=== PATIENT | female | born 1955 | race Hispanic/Latino ===

== ENCOUNTER 2017-09-04 14:40 | Observation (INO) | payer MEDICARE, MEDICAID ==
[2017-09-04] MEDS ORDERED: DiphenhydrAMINE 50 mg/ml Inj IVP STA ×3 (16:25→21:05)
[2017-09-04] MEDS ORDERED: Sodium Chloride 0.9% 1,000 ML IV STA (16:26)
--- NOTE | 2017-09-04 16:50 | ED PDOC ---
HPI: Abdomen Time Seen by Provider: 09/04/17 16:08 Chief Complaint (Nursing): Abdominal Pain Chief Complaint (Provider): Abdominal Pain History Per: Patient History/Exam Limitations: no limitations Onset/Duration Of Symptoms: Days (x10) Outside of [place] travel?: No Current Symptoms Are (Timing): Still Present Location Of Pain/Discomfort: LLQ Quality Of Discomfort: "Pain" Associated Symptoms: Chills, Nausea, Diarrhea. denies: Vomiting Additional Complaint(s): 61 y/o female with a history of diverticulitis and chronic abdominal pain presents to the ED for abdominal pain. Patient states the pain is prominent in the LLQ and has been getting progressively worse over the past 10 days. She went to the [facility] where she had lab work, urine tests, and a CT completed. The diagnosis was diverticulitis and she began on medication which she says gave her no relief. She saw her PMD today who referred her to the ED for evaluation. Patient is complaining of chills, weakness, and body aches. She denies any vomiting, black or bloody stools. PMD: Dr. Bebeto Muhammad Past Medical History Reviewed: Historical Data, Nursing Documentation, Vital Signs Vital Signs: Last Vital Signs Temp 97.6 F 09/04/17 15:13 Pulse 88 09/04/17 15:13 Resp 16 09/04/17 15:13 BP 145/76 09/04/17 15:13 Pulse Ox 98 09/04/17 20:58 - Medical History PMH: Arthritis, Asthma, Back Problems, COPD, Depression, Diverticulitis, Emphysema, HTN, Hypercholesterolemia Denies: HIV, Chronic Kidney Disease - Surgical History Surgical History: Appendectomy, Cholecystectomy - Family History Family History: States: Unknown Family Hx - Social History Current smoker - smoking cessation education provided: No Ex-Smoker (has not smoked in the last 12 months): No Alcohol: None Drugs: Denies - Home Medications Home Medications: Ambulatory Orders Medication Instructions Recorded Albuterol Sulfate [Proair Hfa] 2 puff IH Q4H PRN 04/12/15 Dicyclomine [Bentyl] 20 mg PO TID PRN 04/12/15 Esomeprazole Magnesium [Nexium] 40 mg PO DAILY 04/12/15 Valsartan [Diovan] 40 mg PO DAILY 09/04/17 - Allergies Allergies/Adverse Reactions: Allergies Allergy/AdvReac Type Severity Reaction Status Date / Time ceftriaxone sodium Allergy RASH Verified 09/04/17 15:13 [From Rocephin] iodine Allergy RASH Verified 09/04/17 15:13 ketorolac tromethamine Allergy RASH Verified 09/04/17 15:13 [From Toradol] morphine Allergy RASH Verified 09/04/17 15:13 succinylcholine Allergy ANAPHYLAXIS Verified 09/04/17 15:13 Sulfa (Sulfonamide Allergy RASH Verified 09/04/17 15:13 Antibiotics) Review of Systems ROS Statement: Except As Marked, All Systems Reviewed And Found Negative Constitutional: Positive for: Chills, Weakness, Other (body aches) Gastrointestinal: Positive for: Nausea, Abdominal Pain (LLQ), Diarrhea. Negative for: Vomiting, Hematochezia Physical Exam - Physical Exam Appears: Positive for: Non-toxic, In Acute Distress. Negative for: Well ( painful distress) Head Exam: Positive for: ATRAUMATIC, NORMOCEPHALIC Skin: Positive for: Warm, Dry Eye Exam: Positive for: EOMI, PERRL ENT: Positive for: Pharynx Is (clear), Other (tacky mucous membranes) Neck: Positive for: Painless ROM, Supple Cardiovascular/Chest: Positive for: Regular Rate, Rhythm. Negative for: Murmur Respiratory: Positive for: Normal Breath Sounds. Negative for: Wheezing Gastrointestinal/Abdominal: Positive for: Soft, Tenderness (LLQ). Negative for : Mass, Distended, Guarding, Rebound Back: Positive for: Normal Inspection. Negative for: Decreased ROM Extremity: Positive for: Normal ROM. Negative for: Deformity Lymphatic: Negative for: Adenopathy Neurologic/Psych: Positive for: Alert. Negative for: Motor/Sensory Deficits - Laboratory Results Result Diagrams: 09/04/17 17:38 09/04/17 17:38 - ECG O2 Sat by Pulse Oximetry: 98 (RA) Pulse Ox Interpretation: Normal Medical Decision Making Medical Decision Making: Time: 15:13 Initial Impression: LLQ Pain Differential Diagnosis: Colitis, diverticulitis, ovarian cyst, enteritis, or dehydration Initial Plan: * Abdomen & Pelvis CT * EKG * CMP * Blood Work * UDip * CBC * Chest X-Ray * Tylenol 975 mg PO * Barium Sulfate * Bentyl 20 mg PO * IV Fluids * Zofran 8 mg IV * Blood Culture * Urine Culture * Uranalysis Reviewed workup from [facility] (provided by patient). Ct demonstrated diverticulosis with no diverticulitis. DW Dr Muhammad on arrival who agrees with repeat labs and CT with barium, IV meds for pain and diverticulitis, hospitalize for intractable abdominal pain pending ER workup. Pt initially reported morphine allergy. However, she reports that it just makes her shaky. No rash or sob. Will treat with benadryl and zofran, and follow with morphine. 630p No emergently significant lab abnormalities EXAM: CT Abdomen and Pelvis With Intravenous Contrast EXAM DATE/TIME: 09/04/2017 4:22 PM CLINICAL HISTORY: 61 years old, female; Pain; Abdominal pain; Other: Rlq pain; Prior surgery; Surgery date: 6+ months; Surgery type: Appendectomy, cholecystectomy; Patient HX: HX of diverticulitis; Additional info: Llq R/O divertculitis TECHNIQUE: Axial computed tomography images of the abdomen and pelvis with intravenous contrast. All CT scans at this facility use one or more dose reduction techniques, viz.: automated exposure control; ma/kV adjustment per patient size (including targeted exams where dose is matched to indication; i.e. head); or iterative reconstruction technique. CONTRAST: 450 mL of barium sulfate administered intravenously. COMPARISON: CT - ABD PELVIS W/O PO OR IV CONT 2015-08-26 20:52 FINDINGS: Lung bases: Linear atelectasis in the right lung base. Subtle infiltrate is difficult to exclude. ABDOMEN: Liver: Unremarkable. No mass. Gallbladder and bile ducts: Cholecystectomy. No ductal dilation. Pancreas: Unremarkable. No mass. No ductal dilation. Spleen: Unremarkable. No splenomegaly. Adrenals: Unremarkable. No mass. Kidneys and ureters: Unremarkable. No solid mass. No hydronephrosis. Stomach and bowel: Diverticulosis is most pronounced in the sigmoid colon. No obstruction. No mucosal thickening. Appendix: The appendix is normal. PELVIS: Bladder: Unremarkable. No mass. Reproductive: Unremarkable as visualized. ABDOMEN and PELVIS: Intraperitoneal space: Unremarkable. No free air. No significant fluid collection. Bones/joints: No acute fracture. No dislocation. Soft tissues: Unremarkable. Vasculature: Unremarkable. No abdominal aortic aneurysm. Lymph nodes: Unremarkable. No enlarged lymph nodes. IMPRESSION: 1. No acute obstructive or inflammatory process in the abdomen or pelvis. 2. Linear atelectasis in the right lung base. Subtle infiltrate is difficult to exclude. Thank you for allowing us to participate in the care of your patient. Dictated and Authenticated by: Alek Lyons MD 09/04/2017 8:53 PM Eastern Time ([place] & [place]) Scribe Attestation: Documented by John Hernandes acting as a scribe for Vincent Hemphill MD. Scribe Attestation: All medical record entries made by the Scribe were at my direction and personally dictated by me. I have reviewed the chart and agree that the record accurately reflects my personal performance of the history, physical exam, medical decision making, and the department course for this patient. I have also personally directed, reviewed, and agree with the discharge instructions and disposition. Disposition - Clinical Impression Clinical Impression: Intractable abdominal pain, Diverticulosis Counseled Patient/Family Regarding: Studies Performed, Diagnosis, Need For Followup - Disposition Disposition Time: 17:00 Condition: FAIR - Pt Status Changed To: Hospital Disposition Of: Observation - POA Present On Arrival: None
[2017-09-04] MEDS ORDERED: Barium Sulfate Susp 2.1% w/v, 2.0% w/w 450 mL Bottle PO ONE ×3 (17:00→18:00)
[2017-09-04] MEDS ORDERED: DiphenhydrAMINE 50 mg/ml Inj ONE ×2 (17:32→21:22)
[2017-09-04 17:48] LABS: BASO # 0.1 K/uL (0.0-0.2); BASO % 0.9 % (0.0-2.0); EOS # 0.2 K/uL (0.0-0.7); EOS % 1.4 % (0.0-4.0); HEMOGLOBIN 13.2 g/dL (12.0-16.0); LYMPH # 3.1 K/uL (1.0-4.3); LYMPH % 27.8 % (20.0-40.0); MEAN CORPUSCULAR HEMOGLOBIN 29.9 pg (27.0-31.0); MEAN CORPUSCULAR HGB CONC 33.6 g/dL (33.0-37.0); MEAN PLATELET VOLUME 8.9 fl (7.2-11.7); MONO # 0.5 K/uL (0.0-0.8); MONO % 4.6 % (0.0-10.0); NEUT # 7.4 K/uL (1.8-7.0); NEUT % 65.3 % (50.0-75.0); RBC 4.41 Mil/uL (3.80-5.20); RED CELL DISTRIBUTION WIDTH 15.4 % (11.5-14.5); WHITE BLOOD COUNT 11.3 K/uL (4.8-10.8)
--- NOTE | 2017-09-04 17:55 | RAD ---
HISTORY: Abdominal pain diverticulitis admission COMPARISON: 04/12/2015. FINDINGS: LUNGS: The lungs are well inflated and clear. PLEURA: No significant pleural effusion identified, no pneumothorax apparent. CARDIOVASCULAR: Normal. OSSEOUS STRUCTURES: No significant abnormalities. VISUALIZED UPPER ABDOMEN: Normal. OTHER FINDINGS: None. IMPRESSION: No active pulmonary disease.
[2017-09-04 18:04] LABS: SQUAMOUS EPITHIAL 3 /hpf (0-5); URINE BILIRUBIN NEGATIVE (NEGATIVE); URINE BLOOD NEGATIVE (NEGATIVE); URINE CALCIUM OXALATE CRYSTALS MANY /hpf (<OCC); URINE CLARITY CLOUDY (Clear); URINE COLOR AMBER (YELLOW); URINE GLUCOSE (UA) NEG (Normal); URINE HYALINE CAST 0-2 /hpf (0-2); URINE LEUKOCYTE ESTERASE TRACE Leu/uL (Negative); URINE PROTEIN 30 mg/dL (NEGATIVE); URINE UROBILINOGEN 0.2-1.0 mg/dL (0.2-1.0)
[2017-09-04 18:07] LABS: ALB/GLOB RATIO 1.3 (1.0-2.1); ALBUMIN 4.1 g/dL (3.5-5.0); ALT/SGPT 35 U/L (9-52); AST/SGOT 37 U/L (14-36); BLOOD UREA NITROGEN 11 mg/dl (7-17); CALCIUM 9.5 mg/dL (8.4-10.2); GFR AFRICAN-AMERICAN > 60; GFR NON-AFRICAN AMERICAN > 60; LIPASE 266 U/L (23-300)
[2017-09-04] MEDS ORDERED: Ciprofloxacin 400mg/200ml D5W 400 MG/200 ML BAG IV STA (21:03)
[2017-09-04] MEDS ORDERED: metroNIDAZOLE 500mg/100ml NS 100 ML IV STA (21:03)
[2017-09-04] MEDS ORDERED: metroNIDAZOLE 500mg/100ml NS 100 ML IVPB ONE (21:23)
[2017-09-04] MEDS ORDERED: Ciprofloxacin 400mg/200ml D5W 400 MG/200 ML BAG IVPB ONE (22:52)
[2017-09-05] MEDS: Dextrose 5%/0.45% NS 1,000 ML IV SCH ×2 (00:59→22:00)
[2017-09-05] MEDS: DiphenhydrAMINE 50 mg/ml Inj IVP PRN ×4 (02:39→23:59)
[2017-09-05] MEDS ORDERED: metroNIDAZOLE 500mg/100ml NS IVPB SCH (06:00)
[2017-09-05] MEDS: metroNIDAZOLE 500mg/100ml NS 100 ML IVPB SCH ×3 (06:09→22:35)
[2017-09-05 06:47] LABS: HEMOGLOBIN 13.1 g/dL (12.0-16.0); MEAN CELL VOLUME 90.4 fl (81.0-99.0); MEAN CORPUSCULAR HEMOGLOBIN 29.4 pg (27.0-31.0); MEAN CORPUSCULAR HGB CONC 32.5 g/dL (33.0-37.0); RBC 4.46 Mil/uL (3.80-5.20); RED CELL DISTRIBUTION WIDTH 15.5 % (11.5-14.5); WHITE BLOOD COUNT 11.5 K/uL (4.8-10.8)
[2017-09-05 07:06] LABS: ALB/GLOB RATIO 1.2 (1.0-2.1); ALBUMIN 3.9 g/dL (3.5-5.0); ALT/SGPT 39 U/L (9-52); AMYLASE 89 U/L (30-110); AST/SGOT 33 U/L (14-36); BLOOD UREA NITROGEN 8 mg/dl (7-17); CALCIUM 8.9 mg/dL (8.4-10.2); GFR AFRICAN-AMERICAN > 60; GFR NON-AFRICAN AMERICAN > 60; HDL CHOLESTEROL 29 MG/DL (30-70); LIPASE 225 U/L (23-300)
[2017-09-05 07:18] LABS: T4 8.44 ug/dl (5.5-11.0)
[2017-09-05 07:26] LABS: LDL CHOLESTEROL 153 mg/dL (0-129)
[2017-09-05] MEDS: Ciprofloxacin 400mg/200ml D5W 400 MG/200 ML BAG IVPB SCH ×2 (08:04→21:35)
[2017-09-05] MEDS: Albuterol-Ipratrop 3 mg / 0.5 (3 ml) UD INH SCH ×3 (08:43→19:04)
--- NOTE | 2017-09-05 10:40 | CARD ---
APPROVED REPORT EKG Measurement Heart [id number] CT 120P52 [id number] <Conclusion> Normal sinus rhythm Possible Left atrial enlargement Borderline ECG
--- NOTE | 2017-09-05 11:03 | CT ---
PROCEDURE: CT Abdomen and Pelvis without intravenous contrast HISTORY: LLQ r/o divertculitis COMPARISON: None. TECHNIQUE: Without contrast.. Contrast Dose: 0 Radiation dose: Total exam DLP = Total exam DLP = 457.94 mGy-cm. This CT exam was performed using one or more of the following dose reduction techniques: Automated exposure control, adjustment of the mA and/or kV according to patient size, and/or use of iterative reconstruction technique. FINDINGS: LOWER THORAX: Unremarkable. LIVER: Unremarkable. No gross lesion or ductal dilatation. GALLBLADDER AND BILE DUCTS: Unremarkable. PANCREAS: Unremarkable. No gross lesion or ductal dilatation. SPLEEN: Unremarkable. ADRENALS: Unremarkable. No mass. KIDNEYS AND URETERS: Unremarkable. No hydronephrosis. No solid mass. VASCULATURE: Unremarkable. No aortic aneurysm. BOWEL: Mural thickening of the gastric fundus and cardia common nonspecific. This may be due to lack of adequate distention although there is adequate contrast material in the antrum and body. Possible nonspecific gastritis. No abnormal bowel loops aside from sigmoid diverticulosis. No evidence of diverticulitis. No bowel obstruction. No evidence of constipation. APPENDIX: Unremarkable. Normal appendix. PERITONEUM: Unremarkable. No free fluid. No free air. LYMPH NODES: Unremarkable. No enlarged lymph nodes. BLADDER: Unremarkable. REPRODUCTIVE: Status post hysterectomy BONES: No acute fracture. OTHER FINDINGS: None. IMPRESSION: No evidence of diverticulitis. Sigmoid diverticulosis is noted. Mural thickening of the gastric fundus and cardia common nonspecific. The remainder of the examination is unremarkable.
--- NOTE | 2017-09-05 14:52 | CP.PCM.HP ---
History of Present Illness - History of Present Illness History of Present Illness: CC: Abdominal pain. 61 y/o F, came by me to ER [facility], [place] to be evaluated for abdominal pain for about 10 days, gradually increased on DOA with no relief. Pt was c/o of abdominal pain more intensive to the LLQ, pain was sharp, constant , severe intensity 8-10:10, with no relief. As per Pt, she was discharged from [facility] on 09/01/17, Dx with Diverticulitis, was given Rx for Cipro and Flagyl but Pt only took for one day, claimed she is enable to tolerate the medication. She underwent EGD/Colonoscopy in , was + for gastritis, neg and for HP and negative for polyps. Worsening symptoms: Chills, no fever, nausea, diarrhea, non bloody, body ache. Aggravated factor: Food, bowel movements. Pt denied: Fever, vomiting, urinary symptoms, SOB, cough, CP, palpitations, syncope, dizziness, sick contact, recent travel out of [facility]. Abd/Pelv CT shows: No evidence of Diverticulitis. No bowel obstruction. Sigmoid Diverticulosis noted. CXR: No active disease. EKG: Normal sinus rhythm. Present on Admission - Present on Admission Any Indicators Present on Admission: No Review of Systems - Constitutional Constitutional: Chills - EENT Eyes: Other (negative) Ears: Other (negative) Nose/Mouth/Throat: Other (negative) - Cardiovascular Cardiovascular: Other (negative) - Respiratory Respiratory: Other (negative) - Gastrointestinal Gastrointestinal: Abdominal Pain, Diarrhea, Nausea - Genitourinary Genitourinary: Other (negative) - Musculoskeletal Musculoskeletal: Arthralgias, Back Pain, Muscle Weakness - Integumentary Integumentary: Other (negative) - Neurological Neurological: Other (negative) - Psychiatric Psychiatric: Other (negative) - Endocrine Endocrine: Other (negative) - Hematologic/Lymphatic Hematologic: Other (negative) Past Patient History - Past Medical History & Family History Past Medical History?: Yes Pertinent Family History: Unknown - Past Social History Smoking Status: Never Smoked Alcohol: None Drugs: Denies Home Situation {Lives}: With Family - CARDIAC Hx Cardiac Disorders: Yes (HTN) - PULMONARY Hx Respiratory Disorders: Yes Hx Asthma: Yes Hx Chronic Obstructive Pulmonary Disease (COPD): Yes Hx Emphysema: Yes - NEUROLOGICAL Hx Neurological Disorder: No - HEENT Hx HEENT Problems: No - RENAL Hx Chronic Kidney Disease: No Hx Dialysis: No - ENDOCRINE/METABOLIC Hx Endocrine Disorders: No - HEMATOLOGICAL/ONCOLOGICAL Hx Blood Disorders: No Hx AIDS: No Hx Human Immunodeficiency Virus (HIV): No - INTEGUMENTARY Hx Dermatological Problems: No - MUSCULOSKELETAL/RHEUMATOLOGICAL Hx Musculoskeletal Disorders: Yes Hx Arthritis: Yes Hx Falls: No - GASTROINTESTINAL Hx Gastrointestinal Disorders: Yes Hx Diverticulitis: Yes - GENITOURINARY/GYNECOLOGICAL Hx Genitourinary Disorders: No - PSYCHIATRIC Hx Psychophysiologic Disorder: Yes Hx Depression: Yes Hx Substance Use: No - SURGICAL HISTORY Hx Surgeries: Yes Hx Appendectomy: Yes Hx Cholecystectomy: Yes - ANESTHESIA Hx Anesthesia: Yes Hx Anesthesia Reactions: No Hx Malignant Hyperthermia: No Meds Allergies/Adverse Reactions: Allergies Allergy/AdvReac Type Severity Reaction Status Date / Time ceftriaxone sodium Allergy ITCHING Verified 09/05/17 00:07 [From Rocephin] iodine Allergy RASH Verified 09/04/17 15:13 ketorolac tromethamine Allergy RASH Verified 09/04/17 15:13 [From Toradol] succinylcholine Allergy ANAPHYLAXIS Verified 09/04/17 15:13 Sulfa (Sulfonamide Allergy RASH Verified 09/04/17 15:13 Antibiotics) Physical Exam - Constitutional Appears: No Acute Distress - Head Exam Head Exam: NORMAL INSPECTION - Eye Exam Eye Exam: PERRL - ENT Exam ENT Exam: Normal Exam - Neck Exam Neck exam: Positive for: Normal Inspection - Respiratory Exam Respiratory Exam: Decreased Breath Sounds (b/l) - Cardiovascular Exam Cardiovascular Exam: REGULAR RHYTHM - GI/Abdominal Exam GI & Abdominal Exam: Normal Bowel Sounds, Soft, Tenderness (mild LLQ) - Extremities Exam Extremities exam: Positive for: normal inspection - Back Exam Back exam: NORMAL INSPECTION - Neurological Exam Neurological exam: Alert, Oriented x3 Additional comments: No motor/sensory deficit. - Psychiatric Exam Psychiatric exam: Normal Mood - Skin Skin Exam: Normal Color, Warm Results - Vital Signs Recent Vital Signs: Last Vital Signs Temp 97.9 F 09/05/17 08:14 Pulse 80 09/05/17 08:43 Resp 20 09/05/17 08:14 BP 137/87 09/05/17 08:14 Pulse Ox 97 09/05/17 08:14 reviewed August - Labs Result Diagrams: 09/05/17 05:40 09/05/17 05:40 Labs: Laboratory Results - last 24 hr 09/04/17 09/04/17 09/04/17 17:38 17:38 17:38 WBC 11.3 H RBC 4.41 Hgb 13.2 Hct 39.3 MCV 89.0 MCH 29.9 MCHC 33.6 RDW 15.4 H Plt Count 454 H MPV 8.9 Neut % (Auto) 65.3 Lymph % (Auto) 27.8 [place] % (Auto) 4.6 Eos % (Auto) 1.4 Baso % (Auto) 0.9 Neut # (Auto) 7.4 H Lymph # (Auto) 3.1 [place] # (Auto) 0.5 Eos # (Auto) 0.2 Baso # (Auto) 0.1 Sodium 144 Potassium 3.6 Chloride 103 Carbon Dioxide 26 Anion Gap 19 BUN 11 Creatinine 0.7 Est GFR ( Amer) > 60 Est GFR (Non-Af Amer) > 60 Random Glucose 142 H Calcium 9.5 Phosphorus 3.0 Magnesium 2.0 Total Bilirubin 0.6 AST 37 H ALT 35 Alkaline Phosphatase 57 Total Protein 7.3 Albumin 4.1 Globulin 3.2 Albumin/Globulin Ratio 1.3 Triglycerides Cholesterol LDL Cholesterol Direct HDL Cholesterol Amylase Lipase 266 Thyroxine (T4) TSH 3rd Generation Urine Color Day Urine Clarity Cloudy Urine pH 6.0 Ur Specific [place] 1.021 Urine Protein 30 Urine Glucose (UA) Neg Urine Ketones Trace Urine Blood Negative Urine Nitrate Negative Urine Bilirubin Negative Urine Urobilinogen 0.2-1.0 Ur Leukocyte Esterase Trace Urine RBC (Auto) 2 Urine Microscopic WBC 4 Ur Squamous Epith Cells 3 Calcium Oxalate Crystal Many H Hyaline Casts 0-2 09/05/17 09/05/17 05:40 05:40 WBC 11.5 H RBC 4.46 Hgb 13.1 Hct 40.3 MCV 90.4 MCH 29.4 MCHC 32.5 L RDW 15.5 H Plt Count 475 H MPV Neut % (Auto) Lymph % (Auto) [place] % (Auto) Eos % (Auto) Baso % (Auto) Neut # (Auto) Lymph # (Auto) [place] # (Auto) Eos # (Auto) Baso # (Auto) Sodium 143 Potassium 3.4 L Chloride 103 Carbon Dioxide 25 Anion Gap 18 BUN 8 Creatinine 0.9 Est GFR ( Amer) > 60 Est GFR (Non-Af Amer) > 60 Random Glucose 106 H Calcium 8.9 Phosphorus Magnesium Total Bilirubin 0.6 AST 33 ALT 39 Alkaline Phosphatase 67 Total Protein 7.1 Albumin 3.9 Globulin 3.2 Albumin/Globulin Ratio 1.2 Triglycerides 248 H D Cholesterol 246 H LDL Cholesterol Direct 153 H HDL Cholesterol 29 L Amylase 89 Lipase 225 Thyroxine (T4) 8.44 TSH 3rd Generation 1.99 Urine Color Urine Clarity Urine pH Ur Specific [place] Urine Protein Urine Glucose (UA) Urine Ketones Urine Blood Urine Nitrate Urine Bilirubin Urine Urobilinogen Ur Leukocyte Esterase Urine RBC (Auto) Urine Microscopic WBC Ur Squamous Epith Cells Calcium Oxalate Crystal Hyaline Casts reviewed j.P. - EKG Data EKG comments: reviewed J.P. - Imaging and Cardiology CT scan - abdomen Status: Report reviewed by me (August) CT scan - pelvis Status: Report reviewed by me (August) Chest x-ray Status: Report reviewed by me (August) Assessment & Plan (1) Intractable abdominal pain Status: Acute Priority: High (2) Diarrhea Status: Acute Priority: High (3) HTN (hypertension) Status: Chronic Priority: Medium (4) COPD (chronic obstructive pulmonary disease) Status: Chronic Priority: Medium - Assessment and Plan (Free Text) Plan: F/U Ova/Parasite, Blood C-S, U C-S, Stool C-S, continue Cipro IV, Flagyl IV, Benadryl, Duoneb Tx, Morphine IV, liquid diet and rest of Tx. GI consult. - Date & Time Date: 09/05/17 Time: 09:45
--- NOTE | 2017-09-05 16:44 | CP.PCM.CON ---
<Mana Serrano - Last Filed: 09/05/17 20:24> History of Present Illness - History of Present Illness History of Present Illness: GI Fellow PGY 4 Consult Note This is a 61y female with a history Arthritis, Asthma, Back Problems, COPD, Depression, Diverticulitis, Emphysema, HTN, Hypercholesterolemi presents to the ED for abdominal pain. Patient states the pain is prominent in the LLQ and diarrhea has been getting progressively worse over the past 10 days. She went to the [facility] where she had lab work, urine tests, and a CT completed. CT from the other hospital showed diverticulosis but no infection, colitis or diverticulitis. She was discharged on cipro/flagyl but only took it for one day. She reports that she has been having severe diarrhea after eating anything for the week and been feeling weak. She saw her PMD today who referred her to the ED for evaluation. Patient is complaining of chills, weakness, and body aches. She denies diarrhea, fevers, rectal bleeding. Pt had a EGD/ Colonoscopy 05/2016 with gastritis, neg for HP, colonoscopy was neg for polyps. ROS: A 12pt ROS was negative except as above PmHx: As stated in HPI PsHx: Appendectomy, Cholecystectomy SHx: neg for etoh, tobacco, drugs FHx: no hx of colon cancer Past Patient History - Past Medical History & Family History Past Medical History?: Yes - Past Social History Smoking Status: Never Smoked - CARDIAC Hx Cardiac Disorders: Yes (HTN) - PULMONARY Hx Respiratory Disorders: Yes Hx Asthma: Yes Hx Chronic Obstructive Pulmonary Disease (COPD): Yes Hx Emphysema: Yes - NEUROLOGICAL Hx Neurological Disorder: No - HEENT Hx HEENT Problems: No - RENAL Hx Chronic Kidney Disease: No Hx Dialysis: No - ENDOCRINE/METABOLIC Hx Endocrine Disorders: No - HEMATOLOGICAL/ONCOLOGICAL Hx Blood Disorders: No Hx AIDS: No Hx Human Immunodeficiency Virus (HIV): No - INTEGUMENTARY Hx Dermatological Problems: No - MUSCULOSKELETAL/RHEUMATOLOGICAL Hx Musculoskeletal Disorders: Yes Hx Arthritis: Yes Hx Falls: No - GASTROINTESTINAL Hx Gastrointestinal Disorders: Yes Hx Diverticulitis: Yes - GENITOURINARY/GYNECOLOGICAL Hx Genitourinary Disorders: No - PSYCHIATRIC Hx Psychophysiologic Disorder: Yes Hx Depression: Yes Hx Substance Use: No - SURGICAL HISTORY Hx Surgeries: Yes Hx Appendectomy: Yes Hx Cholecystectomy: Yes - ANESTHESIA Hx Anesthesia: Yes Hx Anesthesia Reactions: No Hx Malignant Hyperthermia: No Meds Allergies/Adverse Reactions: Allergies Allergy/AdvReac Type Severity Reaction Status Date / Time ceftriaxone sodium Allergy ITCHING Verified 09/05/17 00:07 [From Rocephin] iodine Allergy RASH Verified 09/04/17 15:13 ketorolac tromethamine Allergy RASH Verified 09/04/17 15:13 [From Toradol] succinylcholine Allergy ANAPHYLAXIS Verified 09/04/17 15:13 Sulfa (Sulfonamide Allergy RASH Verified 09/04/17 15:13 Antibiotics) - Medications Medications: Current Medications Albuterol/Ipratropium (Duoneb 3 Mg/0.5 Mg (3 Ml) Ud) 3 ml INH RTID [facility] Last Admin: 09/05/17 13:39 Dose: 3 ml Diphenhydramine HCl (Benadryl) 25 mg IVP Q4 PRN PRN Reason: Itching / Pruritus Last Admin: 09/05/17 16:42 Dose: 25 mg Dextrose/Sodium Chloride (Dextrose 5%/0.45% Ns 1000 Ml) 1,000 mls @ 80 mls/hr IV .[id number] [facility] Stop: 09/06/17 00:10 Last Admin: 09/05/17 00:59 Dose: 80 mls/hr Ciprofloxacin (Cipro 400mg/200ml Dsw) 400 mg in 200 mls @ 200 mls/hr IVPB Q12 ARTI PRN Reason: Protocol Last Admin: 09/05/17 08:04 Dose: 200 mls/hr Metronidazole (Flagyl 500mg/100ml Ns) 100 mls @ 100 mls/hr IVPB Q8@0600,1400, 2200 [facility] Last Admin: 09/05/17 14:48 Dose: 100 mls/hr Morphine Sulfate (Morphine) 2 mg IVP Q4 PRN PRN Reason: Pain, moderate (4-7) Last Admin: 09/05/17 16:42 Dose: 2 mg Morphine Sulfate (Morphine) 4 mg IVP Q4 PRN PRN Reason: Pain, severe (8-10) Last Admin: 09/05/17 02:38 Dose: 4 mg Ondansetron HCl (Zofran Inj) 4 mg IVP Q4 PRN PRN Reason: Nausea/Vomiting Last Admin: 09/05/17 08:02 Dose: 4 mg Pantoprazole Sodium (Protonix Inj) 40 mg IVP DAILY ARTI Last Admin: 09/05/17 08:07 Dose: 40 mg Physical Exam - Constitutional Appears: Non-toxic, No Acute Distress - Head Exam Head Exam: ATRAUMATIC, NORMAL INSPECTION, NORMOCEPHALIC - Eye Exam Eye Exam: EOMI, Normal appearance, PERRL Pupil Exam: PERRL - ENT Exam ENT Exam: Mucous Membranes Moist - Respiratory Exam Respiratory Exam: Clear to Auscultation Bilateral, NORMAL BREATHING PATTERN - Cardiovascular Exam Cardiovascular Exam: REGULAR RHYTHM, RRR - GI/Abdominal Exam GI & Abdominal Exam: Normal Bowel Sounds, Soft, Tenderness. absent: Diminished Bowel Sounds, Distended, Hypoactive Bowel Sounds, Organomegaly, Rigid - Rectal Exam Rectal Exam: Deferred - Extremities Exam Extremities exam: Positive for: full ROM, normal inspection - Back Exam Back exam: NORMAL INSPECTION - Neurological Exam Neurological exam: Alert, Oriented x3 - Psychiatric Exam Psychiatric exam: Normal Affect, Normal Mood - Skin Skin Exam: Dry, Intact, Normal Color, Warm Results - Vital Signs Recent Vital Signs: Last Vital Signs Temp 98 F 09/05/17 16:36 Pulse 90 09/05/17 16:36 Resp 20 09/05/17 16:36 BP 121/71 09/05/17 16:36 Pulse Ox 97 09/05/17 16:36 - Labs Result Diagrams: 09/05/17 05:40 09/05/17 05:40 Labs: Laboratory Results - last 24 hr 09/04/17 09/04/17 09/04/17 17:38 17:38 17:38 WBC 11.3 H RBC 4.41 Hgb 13.2 Hct 39.3 MCV 89.0 MCH 29.9 MCHC 33.6 RDW 15.4 H Plt Count 454 H MPV 8.9 Neut % (Auto) 65.3 Lymph % (Auto) 27.8 Mcintosh % (Auto) 4.6 Eos % (Auto) 1.4 Baso % (Auto) 0.9 Neut # (Auto) 7.4 H Lymph # (Auto) 3.1 Mcintosh # (Auto) 0.5 Eos # (Auto) 0.2 Baso # (Auto) 0.1 Sodium 144 Potassium 3.6 Chloride 103 Carbon Dioxide 26 Anion Gap 19 BUN 11 Creatinine 0.7 Est GFR ( Amer) > 60 Est GFR (Non-Af Amer) > 60 Random Glucose 142 H Calcium 9.5 Phosphorus 3.0 Magnesium 2.0 Total Bilirubin 0.6 AST 37 H ALT 35 Alkaline Phosphatase 57 Total Protein 7.3 Albumin 4.1 Globulin 3.2 Albumin/Globulin Ratio 1.3 Triglycerides Cholesterol LDL Cholesterol Direct HDL Cholesterol Amylase Lipase 266 Thyroxine (T4) TSH 3rd Generation Urine Color Day Urine Clarity Cloudy Urine pH 6.0 Ur Specific [place] 1.021 Urine Protein 30 Urine Glucose (UA) Neg Urine Ketones Trace Urine Blood Negative Urine Nitrate Negative Urine Bilirubin Negative Urine Urobilinogen 0.2-1.0 Ur Leukocyte Esterase Trace Urine RBC (Auto) 2 Urine Microscopic WBC 4 Ur Squamous Epith Cells 3 Calcium Oxalate Crystal Many H Hyaline Casts 0-2 09/05/17 09/05/17 05:40 05:40 WBC 11.5 H RBC 4.46 Hgb 13.1 Hct 40.3 MCV 90.4 MCH 29.4 MCHC 32.5 L RDW 15.5 H Plt Count 475 H MPV Neut % (Auto) Lymph % (Auto) Mcintosh % (Auto) Eos % (Auto) Baso % (Auto) Neut # (Auto) Lymph # (Auto) Mcintosh # (Auto) Eos # (Auto) Baso # (Auto) Sodium 143 Potassium 3.4 L Chloride 103 Carbon Dioxide 25 Anion Gap 18 BUN 8 Creatinine 0.9 Est GFR ( Amer) > 60 Est GFR (Non-Af Amer) > 60 Random Glucose 106 H Calcium 8.9 Phosphorus Magnesium Total Bilirubin 0.6 AST 33 ALT 39 Alkaline Phosphatase 67 Total Protein 7.1 Albumin 3.9 Globulin 3.2 Albumin/Globulin Ratio 1.2 Triglycerides 248 H D Cholesterol 246 H LDL Cholesterol Direct 153 H HDL Cholesterol 29 L Amylase 89 Lipase 225 Thyroxine (T4) 8.44 TSH 3rd Generation 1.99 Urine Color Urine Clarity Urine pH Ur Specific [place] Urine Protein Urine Glucose (UA) Urine Ketones Urine Blood Urine Nitrate Urine Bilirubin Urine Urobilinogen Ur Leukocyte Esterase Urine RBC (Auto) Urine Microscopic WBC Ur Squamous Epith Cells Calcium Oxalate Crystal Hyaline Casts Assessment & Plan - Assessment and Plan (Free Text) Assessment: This is a 61yF presenting with complaints of abdominal pain and diarrhea for 1 week. 1. Abdominal pain 2. Diarrhea Plan: -Continue supportive care with pain control and anti-emetics -CT imaging w/o contrast reviewed with no signs of diverticulitis -Pt with abdominal pain and diarrhea-r/o infectious etiology, order stool studies, r/o cdiff, maybe viral gastroenteritis -Continue IV abx -Liquid diet and advance as tolerated -EGD/Colonoscopy 05/2016 mild gastritis, otherwise negative -IVF hydration -Will continue to monitor closely <Talia Moya - Last Filed: 09/06/17 11:18> Meds - Medications Medications: Current Medications Albuterol/Ipratropium (Duoneb 3 Mg/0.5 Mg (3 Ml) Ud) 3 ml INH RTID [facility] Last Admin: 09/06/17 07:20 Dose: 3 ml Diphenhydramine HCl (Benadryl) 25 mg IVP Q4 PRN PRN Reason: Itching / Pruritus Last Admin: 09/06/17 06:24 Dose: 25 mg Ciprofloxacin (Cipro 400mg/200ml Dsw) 400 mg in 200 mls @ 200 mls/hr IVPB Q12 ARTI PRN Reason: Protocol Last Admin: 09/06/17 08:42 Dose: 200 mls/hr Metronidazole (Flagyl 500mg/100ml Ns) 100 mls @ 100 mls/hr IVPB Q8@0600,1400, 2200 [facility] Last Admin: 09/06/17 05:55 Dose: 100 mls/hr Morphine Sulfate (Morphine) 2 mg IVP Q4 PRN PRN Reason: Pain, moderate (4-7) Last Admin: 09/06/17 06:24 Dose: 2 mg Morphine Sulfate (Morphine) 4 mg IVP Q4 PRN PRN Reason: Pain, severe (8-10) Last Admin: 09/05/17 02:38 Dose: 4 mg Ondansetron HCl (Zofran Inj) 4 mg IVP Q4 PRN PRN Reason: Nausea/Vomiting Last Admin: 09/05/17 08:02 Dose: 4 mg Pantoprazole Sodium (Protonix Inj) 40 mg IVP DAILY [facility] Last Admin: 09/06/17 08:44 Dose: 40 mg Results - Vital Signs Recent Vital Signs: Last Vital Signs Temp 98.2 F 09/06/17 07:58 Pulse 71 09/06/17 07:58 Resp 18 09/06/17 07:58 BP 135/75 09/06/17 07:58 Pulse Ox 99 09/06/17 07:58 - Labs Result Diagrams: 09/05/17 05:40 09/05/17 05:40 Labs: Laboratory Results - last 24 hr 09/05/17 16:03 Urine Color Straw Urine Clarity Clear Urine pH 7.0 Ur Specific [place] < 1.005 Urine Protein Negative Urine Glucose (UA) Neg Urine Ketones Negative Urine Blood Small Urine Nitrate Negative Urine Bilirubin Negative Urine Urobilinogen 0.2-1.0 Ur Leukocyte Esterase Neg Urine RBC (Auto) 3 Urine Microscopic WBC 1 Attending/Attestation - Attestation I have personally seen and examined this patient.: Yes I have fully participated in the care of the patient.: Yes I have reviewed all pertinent clinical information: Yes Notes (Text): 09/06/17 11:03 This is a 61 year old F presenting with complaints of abdominal pain and diarrhea for 1 week which has resolved now and has not been . CT imaging w/o contrast reviewed with no signs of diverticulitis or thickening. s/p EGD/Colonoscopy 05/2016 mild gastritis, otherwise negative. can follow with me in the office. Thank you for letting us participate in the care of your patient
[2017-09-05 17:46] LABS: URINE BILIRUBIN NEGATIVE (NEGATIVE); URINE BLOOD SMALL (NEGATIVE); URINE CLARITY CLEAR (Clear); URINE COLOR STRAW (YELLOW); URINE GLUCOSE (UA) NEG (Normal); URINE LEUKOCYTE ESTERASE NEG Leu/uL (Negative); URINE PROTEIN NEGATIVE (NEGATIVE); URINE UROBILINOGEN 0.2-1.0 mg/dL (0.2-1.0)
[2017-09-06] MEDS: metroNIDAZOLE 500mg/100ml NS 100 ML IVPB SCH (05:55)
[2017-09-06] MEDS: DiphenhydrAMINE 50 mg/ml Inj IVP PRN ×2 (06:24→12:36)
[2017-09-06] MEDS: Albuterol-Ipratrop 3 mg / 0.5 (3 ml) UD INH SCH ×2 (07:20→13:38)
[2017-09-06 07:59] VITALS: BP 135/75; PULSE 71; RESP 18; TEMP 98.2; O2SAT 99
--- NOTE | 2017-09-06 08:34 | CP.PCM.PN ---
<Mana Serrano - Last Filed: 09/06/17 10:16> Subjective - Date & Time of Evaluation Date of Evaluation: 09/06/17 Time of Evaluation: 08:20 - Subjective Subjective: GI Fellow PGY 4 Progress Note Pt seen and evaluated at bedside, pt doing well with improved diarrhea, no BM overnight. Pt reports still having abdominal pain but its much improved since admission. No nausea, vomiting, fevers or chills. Pt requesting a regular diet. ROS: A 12pt ROS was negative except as above. Objective - Vital Signs/Intake and Output Vital Signs (last 24 hours): Temp Pulse Resp BP Pulse Ox 98.2 F 71 18 135/75 99 09/06/17 07:58 09/06/17 07:58 09/06/17 07:58 09/06/17 07:58 09/06/17 07:58 - Medications Medications: Current Medications Albuterol/Ipratropium (Duoneb 3 Mg/0.5 Mg (3 Ml) Ud) 3 ml INH RTID [facility] Last Admin: 09/06/17 07:20 Dose: 3 ml Diphenhydramine HCl (Benadryl) 25 mg IVP Q4 PRN PRN Reason: Itching / Pruritus Last Admin: 09/06/17 06:24 Dose: 25 mg Ciprofloxacin (Cipro 400mg/200ml Dsw) 400 mg in 200 mls @ 200 mls/hr IVPB Q12 ARTI PRN Reason: Protocol Last Admin: 09/05/17 21:35 Dose: 200 mls/hr Metronidazole (Flagyl 500mg/100ml Ns) 100 mls @ 100 mls/hr IVPB Q8@0600,1400, 2200 [facility] Last Admin: 09/06/17 05:55 Dose: 100 mls/hr Morphine Sulfate (Morphine) 2 mg IVP Q4 PRN PRN Reason: Pain, moderate (4-7) Last Admin: 09/06/17 06:24 Dose: 2 mg Morphine Sulfate (Morphine) 4 mg IVP Q4 PRN PRN Reason: Pain, severe (8-10) Last Admin: 09/05/17 02:38 Dose: 4 mg Ondansetron HCl (Zofran Inj) 4 mg IVP Q4 PRN PRN Reason: Nausea/Vomiting Last Admin: 09/05/17 08:02 Dose: 4 mg Pantoprazole Sodium (Protonix Inj) 40 mg IVP DAILY ARTI Last Admin: 09/05/17 08:07 Dose: 40 mg - Labs Labs: 09/05/17 05:40 09/05/17 05:40 - Constitutional Appears: Non-toxic, No Acute Distress - Head Exam Head Exam: ATRAUMATIC, NORMAL INSPECTION, NORMOCEPHALIC - Eye Exam Eye Exam: EOMI, Normal appearance, PERRL - ENT Exam ENT Exam: Mucous Membranes Moist - Neck Exam Neck Exam: Full ROM - Respiratory Exam Respiratory Exam: Clear to Ausculation Bilateral, NORMAL BREATHING PATTERN - Cardiovascular Exam Cardiovascular Exam: REGULAR RHYTHM, RRR, +S1, +S2 - GI/Abdominal Exam GI & Abdominal Exam: Soft, Tenderness, Normal Bowel Sounds. absent: Distended, Firm, Guarding, Rigid, Organomegaly - Rectal Exam Rectal Exam: Deferred - Extremities Exam Extremities Exam: Full ROM, Normal Inspection - Back Exam Back Exam: NORMAL INSPECTION - Neurological Exam Neurological Exam: Oriented x3 - Psychiatric Exam Psychiatric exam: Normal Affect, Normal Mood - Skin Skin Exam: Dry, Intact, Normal Color, Warm Assessment and Plan - Assessment and Plan (Free Text) Assessment: This is a 61yF presenting with complaints of abdominal pain and diarrhea for 1 week. 1. Abdominal pain-improving 2. Diarrhea-resolved Plan: -Continue supportive care with pain control and anti-emetics -CT imaging w/o contrast reviewed with no signs of diverticulitis -Pt with abdominal pain and diarrhea-infectious workup pending including stool studies, cdiff, this maybe viral gastroenteritis -Continue abx, can change to po abx prior to discharge home to complete total 7 day course -Advance to regular diet -IVF hydration -EGD/Colonoscopy 05/2016 mild gastritis, otherwise negative -Pt will need to follow up outpt with GI -Please call with any questions or concern s <Talia Moya - Last Filed: 09/06/17 11:45> Objective - Vital Signs/Intake and Output Vital Signs (last 24 hours): Temp Pulse Resp BP Pulse Ox 98.2 F 71 18 135/75 99 09/06/17 07:58 09/06/17 07:58 09/06/17 07:58 09/06/17 07:58 09/06/17 07:58 - Medications Medications: Current Medications Albuterol/Ipratropium (Duoneb 3 Mg/0.5 Mg (3 Ml) Ud) 3 ml INH RTID [facility] Last Admin: 09/06/17 07:20 Dose: 3 ml Diphenhydramine HCl (Benadryl) 25 mg IVP Q4 PRN PRN Reason: Itching / Pruritus Last Admin: 09/06/17 06:24 Dose: 25 mg Ciprofloxacin (Cipro 400mg/200ml Dsw) 400 mg in 200 mls @ 200 mls/hr IVPB Q12 ARTI PRN Reason: Protocol Last Admin: 09/06/17 08:42 Dose: 200 mls/hr Metronidazole (Flagyl 500mg/100ml Ns) 100 mls @ 100 mls/hr IVPB Q8@0600,1400, 2200 [facility] Last Admin: 09/06/17 05:55 Dose: 100 mls/hr Morphine Sulfate (Morphine) 2 mg IVP Q4 PRN PRN Reason: Pain, moderate (4-7) Last Admin: 09/06/17 06:24 Dose: 2 mg Morphine Sulfate (Morphine) 4 mg IVP Q4 PRN PRN Reason: Pain, severe (8-10) Last Admin: 09/05/17 02:38 Dose: 4 mg Ondansetron HCl (Zofran Inj) 4 mg IVP Q4 PRN PRN Reason: Nausea/Vomiting Last Admin: 09/05/17 08:02 Dose: 4 mg Pantoprazole Sodium (Protonix Inj) 40 mg IVP DAILY [facility] Last Admin: 09/06/17 08:44 Dose: 40 mg - Labs Labs: 09/05/17 05:40 09/05/17 05:40 Attending/Attestation - Attestation I have personally seen and examined this patient.: Yes I have fully participated in the care of the patient.: Yes I have reviewed all pertinent clinical information, including history, physical exam and plan: Yes Notes (Text): 09/06/17 11:43 This is a 61 yr old F with abdominal pain and diarrhea now resolved. CT imaging w/o contrast reviewed with no signs of diverticulitis -Advance to regular diet -IVF hydration -EGD/Colonoscopy 05/2016 mild gastritis, otherwise negative -Pt will need to follow up outpt with GI -Please call with any questions or concern s
[2017-09-06] MEDS: Ciprofloxacin 400mg/200ml D5W 400 MG/200 ML BAG IVPB SCH (08:42)
[2017-09-06] MEDS ORDERED: Potassium Chloride 20 mEq ER Tab PO ONE (12:24)
== END 2017-09-06 16:20 | disposition home or self-care (01) ==
LOC: H.ER 14:40 → H.ERHOLD 20:38 → H.MEDSURG1 23:35
PROVIDERS: ADMIT Internal Medicine Pulmonary Disease; ATTEND Internal Medicine Pulmonary Disease
DX: K57.32 Diverticulitis of large intestine without perforation or abscess without bleeding (principal); Z90.49 Acquired absence of other specified parts of digestive tract; F32.9 Major depressive disorder, single episode, unspecified; G89.29 Other chronic pain; M19.90 Unspecified osteoarthritis, unspecified site; Z79.899 Other long term (current) drug therapy; E78.00 Pure hypercholesterolemia, unspecified; I10 Essential (primary) hypertension; J43.9 Emphysema, unspecified; J98.11 Atelectasis; K29.70 Gastritis, unspecified, without bleeding
CPT/HCPCS: 36415; 71045; 74176; 80053; 80061; 81003; 82150; 83690; 83735; 84100; 84436; 84443; 85025; 85027; 87040; 87045; 87086; 87177; 87209; 93005; 94640; 96365; 96366; 96367; 96375; 96376; 99284; C9113; G0378; J0744; J1200; J2270; J2405; J7040; J7042

== ENCOUNTER 2017-10-10 08:14 | Day surgery (SDC) | payer MEDICARE, MEDICAID ==
[2017-10-10] MEDS ORDERED: Lactated Ringer's 500 ML IV ONE (08:37)
[2017-10-10] MEDS ORDERED: Albuterol HFA 90 mcg/actuation (8 g) ONE (08:55)
[2017-10-10] MEDS ORDERED: Propofol 10 mg/ml Inj (20 ML) ONE (09:17)
[2017-10-10 09:58] VITALS: TEMP 97
[2017-10-10 10:21] VITALS: BP 133/78; PULSE 79; RESP 16; O2SAT 98
== END 2017-10-10 11:15 | disposition home or self-care (01) ==
LOC: H.ENDO 08:14
PROVIDERS: ATTEND Internal Medicine Gastroenterology
DX: K52.9 Noninfective gastroenteritis and colitis, unspecified (principal); J45.909 Unspecified asthma, uncomplicated; J44.9 Chronic obstructive pulmonary disease, unspecified; I10 Essential (primary) hypertension; Z87.891 Personal history of nicotine dependence; K57.30 Diverticulosis of large intestine without perforation or abscess without bleeding; K29.50 Unspecified chronic gastritis without bleeding
CPT/HCPCS: 43239; 45380; 88305; J2001; J2704; J7120

== ENCOUNTER 2018-08-10 12:17 | Emergency (ER) | payer MEDICARE, MEDICAID ==
[2018-08-10 12:20] VITALS: BMI 23.0
[2018-08-10 12:26] VITALS: RESP 18; O2SAT 97
--- NOTE | 2018-08-10 12:41 | ED PDOC ---
HPI: Eye Injury/Pain Time Seen by Provider: 08/10/18 12:28 Chief Complaint (Nursing): Abnormal Skin Integrity Chief Complaint (Provider): Abnormal skin integrity History Per: Patient History/Exam Limitations: no limitations Onset/Duration Of Symptoms: Days (3x) Current Symptoms Are (Timing): Still Present Injury To Eye?: No Severity: Moderate Quality: Burning Additional Complaint(s): 62 year old female with a past medical history of asthma and hypertension presents to the ED for an evaluation of facial burning that started 2x days ago. Patient states that 3x days ago, she went and had a chemical peel, and was told to apply cetaphil. The next morning she woke up with bilateral periorbital edema, burning in nature. Patient denies applying anything on her eyes since then. Patient further reports that yesterday she experienced chills and today she has a headache, for which she took a motrin for 30x minutes prior to arrival. Patient denies having itching, fevers, chest pain, and shortness of breath. Patient spoke with her PMD, who told her to go to the ED for an evaluation. PMD: Bebeto Muhammad MD Past Medical History Reviewed: Historical Data, Nursing Documentation, Vital Signs Vital Signs: Last Vital Signs Temp 98.8 F 08/10/18 12:22 Pulse 81 08/10/18 12:22 Resp 18 08/10/18 12:22 BP 134/70 08/10/18 12:22 Pulse Ox 97 08/10/18 12:22 MICHELE Report Viewed: Yes - Medical History PMH: Arthritis, Asthma, Back Problems, COPD, Depression, Diverticulitis, Emphysema, HTN, Hypercholesterolemia Denies: HIV, Chronic Kidney Disease - Surgical History Surgical History: Appendectomy, Cholecystectomy, Endoscopy, Hernia Repair (inguinal) Denies: Pacemaker Other surgeries: hysterectomy. bladder sling. left knee replacement - Family History Family History: States: No Known Family Hx - Social History Current smoker - smoking cessation education provided: Yes Alcohol: None Drugs: Denies - Home Medications Home Medications: Ambulatory Orders Medication Instructions Recorded Albuterol Sulfate [Proair Hfa] 2 puff IH Q4H PRN 04/12/15 Dicyclomine [Bentyl] 20 mg PO TID PRN 04/12/15 Esomeprazole Magnesium [Nexium] 40 mg PO DAILY 04/12/15 Ascorbic Acid [Vitamin C] 1,000 mg PO DAILY 05/10/17 Cyanocobalamin [Vitamin B12 1000 1,000 mcg PO DAILY 05/10/17 mcg Tab] Esomeprazole Magnesium [Nexium] 40 mg PO DAILY 05/10/17 Fluticasone/Salmeterol 250/50 1 puff IH PRN PRN 05/10/17 [Advair Diskus] Valsartan/Hydrochlorothiazide 1 tab PO DAILY 05/10/17 [Valsartan and Hydrochlorothiazide 12.5 mg-320] Valsartan [Diovan] 40 mg PO DAILY 09/04/17 Bacitracin OINT 1 applic TP TID #1 tube 08/10/18 DiphenhydrAMINE [Benadryl] 25 mg PO Q6H PRN 5 Days #30 cap 08/10/18 Methylprednisolone [Medrol Dose 5 mg PO DAILY #21 mg 08/10/18 Pack (21 tabs)] - Allergies Allergies/Adverse Reactions: Allergies Allergy/AdvReac Type Severity Reaction Status Date / Time acetaminophen Allergy Severe RASH Verified 05/08/18 14:26 [From Darvocet-N] ceftriaxone [From Rocephin] Allergy Severe ITCHING Verified 05/08/18 14:26 FISH Allergy Severe HIVES Verified 05/08/18 14:26 Iodinated Contrast- Oral and Allergy Severe SEIZURE Verified 05/08/18 14:26 IV Dye ketorolac [From Toradol] Allergy Severe MEMORY LOSS Verified 05/08/18 14:26 propoxyphene Allergy Severe RASH Verified 05/08/18 14:26 [From Darvocet-N] sulfamethoxazole Allergy Severe HIVES Verified 05/08/18 14:26 [From Bactrim] trimethoprim [From Bactrim] Allergy Severe HIVES Verified 05/08/18 14:26 Sulfa (Sulfonamide Allergy Intermediate RASH Verified 05/08/18 14:26 Antibiotics) ceftriaxone sodium Allergy ITCHING Verified 05/08/18 14:26 [From Rocephin] iodine Allergy RASH Verified 05/08/18 14:26 ketorolac tromethamine Allergy RASH Verified 05/08/18 14:26 [From Toradol] succinylcholine Allergy ANAPHYLAXIS Verified 05/08/18 14:26 morphine AdvReac Severe SWEATING Verified 05/08/18 14:26 Review of Systems ROS Statement: Except As Marked, All Systems Reviewed And Found Negative Constitutional: Positive for: Chills. Negative for: Fever Eyes: Positive for: Other (bilateral periorbital edema, (-) itching) Cardiovascular: Negative for: Chest Pain Respiratory: Negative for: Shortness of Breath Neurological: Positive for: Headache Physical Exam - Reviewed Nursing Documentation Reviewed: Yes Vital Signs Reviewed: Yes - Physical Exam Appears: Positive for: Well, Non-toxic, No Acute Distress Head Exam: Positive for: ATRAUMATIC, NORMOCEPHALIC Skin: Positive for: Normal Color, Warm, Dry Eye Exam: Positive for: EOMI, PERRL, Periorbital swelling ( bilaterally, with some redness right under bilaterally.) Neurological/Psych: Positive for: Awake, Alert, Oriented (3x) - ECG O2 Sat by Pulse Oximetry: 97 (RA) Pulse Ox Interpretation: Normal Medical Decision Making Medical Decision Makin:28 Initial impression: 62 year old female with bilateral periorbital edema Initial plan: Call placed to for course treatment. 12:40 Spoke with , patient to be given solumedrol 125 mg IV and benadryl 25 mg IV in ED 15:05 Upon provider reevaluation patient is feeling better, is medically stable, and requires no further treatment in the ED at this time. Patient will be discharged home with Rx for prednisone taper, benadryl 25 mg Q6H, bacitracin TID, and patient to be seen by in his office on 08/12/2018 at 13:00. also recommended patient be given silvadine, but patient states that she is allergic to sulfa drugs. Patient will be given a work note. Patient also states that she will follow up with automobile tester who performed the chemical peel tomorrow. Counseling was provided and all questions were answered regarding diagnosis. There is agreement to discharge plan. Return if symptoms persist or worsen. ScribeAttestation: Documented bySusan Mims, acting as a scribe for Margareth Reyes APN. Provider ScribeAttestation: All medical record entries made by the Scribe were at my direction and personally dictated by me. I have reviewed the chart and agree that the record accurately reflects my personal performance of the history, physical exam, medical decision making, and the department course for this patient. I have also personally directed, reviewed, and agree with the discharge instructions and disposition. Disposition - Clinical Impression Clinical Impression: Chemical burn - Patient ED Disposition Is Patient to be Admitted: No - Disposition Referrals: Bebeto Muhammad MD [Staff Provider] - Disposition: Routine/Home Disposition Time: 15:05 Condition: IMPROVED Additional Instructions: Follow-up with Dr. Muhammad on Saturday 08/12 at 1pm. Call Credit Assessment Analyst tomorrow Prescriptions: Bacitracin OINT 1 applic TP TID #1 tube DiphenhydrAMINE [Benadryl] 25 mg PO Q6H PRN 5 Days #30 cap PRN Reason: Allergy Symptoms Methylprednisolone [Medrol Dose Pack (21 tabs)] 5 mg PO DAILY #21 mg Instructions: Skin Felix Forms: [facility] ED School/Work Excuse Print Language: [place] - POA Present On Arrival: None
[2018-08-10] MEDS ORDERED: DiphenhydrAMINE 50 mg/ml Inj IVP STA (12:49)
[2018-08-10] MEDS ORDERED: DiphenhydrAMINE 50 mg/ml Inj ONE (13:32)
[2018-08-10 15:49] VITALS: BP 138/77; PULSE 84; TEMP 98.2
== END 2018-08-10 15:48 | disposition home or self-care (01) ==
LOC: H.ER 12:17
DX: T65.91XA Toxic effect of unspecified substance, accidental (unintentional), initial encounter (principal); T20.40XA Corrosion of unspecified degree of head, face, and neck, unspecified site, initial encounter; F17.200 Nicotine dependence, unspecified, uncomplicated; I10 Essential (primary) hypertension; J44.9 Chronic obstructive pulmonary disease, unspecified; Z79.899 Other long term (current) drug therapy; Z88.1 Allergy status to other antibiotic agents; Z86.59 Personal history of other mental and behavioral disorders; Z88.8 Allergy status to other drugs, medicaments and biological substances; Z90.710 Acquired absence of both cervix and uterus
CPT/HCPCS: 96374; 96375; 99282; J1200; J2930